=== PATIENT | female | born 1985 | race African-American/Black ===

== ENCOUNTER 2020-04-17 13:45 | Emergency (ER) | payer OTHER ==
[~2020-04-17] VITALS: Ht 172.7 cm; Wt 129.3 kg
[~2020-04-17 13:45] MED LIST: NOHOMEMEDICATIONS; TESSALON PERLE100 MG PO; ULTRAM 50MG TAB50 MG PO; ZOFRAN ODT4 MG PO; ZPAK PO
[2020-04-17] MEDS ORDERED: CLEOCIN HCL150 MG PO (15:14)
[2020-04-17] MEDS ORDERED: NAPROSYN500 MG PO (15:14)
[2020-04-17] MEDS ORDERED: ULTRAM 50MG TAB50 MG PO (15:14)
[2020-04-17 15:57] VITALS: BP 158/75
== END 2020-04-17 15:58 | disposition home or self-care (01) ==
LOC: ER 13:45
DX: K12.1 Other forms of stomatitis (principal); K13.79 Other lesions of oral mucosa; Z88.5 Allergy status to narcotic agent; Z88.0 Allergy status to penicillin; Z98.890 Other specified postprocedural states

== ENCOUNTER 2020-07-07 09:05 | Emergency (ER) | payer OTHER ==
[~2020-07-07] VITALS: Ht 172.7 cm; Wt 136.5 kg
[~2020-07-07 09:05] MED LIST changes: +CLEOCIN HCL150 MG PO; +CLINDAMYCIN HC300 MG PO; +NAPROSYN500 MG PO; +TRAMADOL 50 MG50 MG PO
[2020-07-07 09:06] VITALS: BP 149/57
[2020-07-07 09:27] LABS: URINE BILIRUBIN NEGATIVE (Negative); URINE BLOOD 3+ (Negative); URINE CLARITY CLEAR; URINE COLOR YELLOW; URINE GLUCOSE-RANDOM* NEGATIVE (Negative); URINE KETONES NEGATIVE (Negative); URINE LEUKOCYTES-REFLEX NEGATIVE (Negative); URINE NITRITE-REFLEX NEGATIVE (Negative); URINE PROTEIN (DIPSTICK) NEGATIVE (Negative); URINE SPECIFIC GRAVITY 1.025 (1.005-1.035); URINE UROBILINOGEN 0.2 E.U./dl (0.2-1.0)
[2020-07-07 09:36] LABS: CASTS None Seen /LPF (None Seen); CRYSTALS None Seen /LPF (None Seen); SQUAMOUS >10 Many /LPF (0-3); URINE WBC-REFLEX None Seen /HPF (0-5)
[2020-07-07 09:37] LABS: BACTERIA-REFLEX 1-9 Few /HPF (None Seen)
== END 2020-07-07 10:37 | disposition home or self-care (01) ==
LOC: ER 09:05
PROVIDERS: Emergency Medicine
DX: R31.9 Hematuria, unspecified (principal); R10.2 Pelvic and perineal pain; Z98.890 Other specified postprocedural states; Z88.6 Allergy status to analgesic agent; Z88.0 Allergy status to penicillin; E66.9 Obesity, unspecified; Z68.42 Body mass index [BMI] 45.0-49.9, adult